=== PATIENT | male | born 1970 | race Caucasian/White ===

== ENCOUNTER 2019-06-01 05:28 | Inpatient (IN) | payer BC ==
[~2019-06-01] VITALS: Ht 170.2 cm; Wt 87.2 kg
[2019-06-01] MEDS ORDERED: LACTATED RINGERS 1,000 ML IV SCH (06:17)
[2019-06-01] MEDS ORDERED: MIDAZOLAM 1 MG/ML, 2ML ONE (06:46)
[2019-06-01] MEDS ORDERED: FENTANYL PF 250 MCG/5ML ONE (06:47)
[2019-06-01] MEDS ORDERED: PHENYLEPHRINE 10 MG/ML ONE (06:47)
[2019-06-01] MEDS ORDERED: GABA600T7 PO (06:49)
[2019-06-01] MEDS ORDERED: CELE100C PO (06:49)
[2019-06-01] MEDS ORDERED: OXYC10TA6 PO (06:49)
[2019-06-01] MEDS ORDERED: PROPOFOL 10 MG/ML, 20ML ONE (06:53)
[2019-06-01] MEDS ORDERED: GLYCOPYRROLATE 0.2MG/1ML, 5ML ONE (06:53)
[2019-06-01] MEDS ORDERED: NEOSTIGMINE 1 MG/ML, 10ML ONE (06:53)
[2019-06-01] MEDS ORDERED: ROCURONIUM 10MG/ML,5ML ONE (06:53)
[2019-06-01] MEDS ORDERED: CEFAZOLIN 1,000 MG ONE (06:53)
[2019-06-01] MEDS ORDERED: PROPOFOL 100 ML ONE (06:54)
[2019-06-01] MEDS ORDERED: BUPIVACAINE/PF-EPI 0.5% 1:200K ONE (06:57)
[2019-06-01] MEDS ORDERED: THROMBIN 5,000 UNIT VIAL TP ONE (06:57)
[2019-06-01] MEDS ORDERED: morphine SULFATE/PF 1 MG/ML, 10ML ONE (06:57)
[2019-06-01] MEDS ORDERED: LIDOCAINE 1%-EPI 1:100K, 20ML ONE (06:58)
[2019-06-01] MEDS ORDERED: FENTANYL PF 100 MCG/2ML ONE ×2 (06:58→11:03)
[2019-06-01] MEDS ORDERED: VANCOMYCIN 1,000 MG ONE (06:58)
[2019-06-01] MEDS ORDERED: BACITRACIN 50,000 UNIT ONE (06:58)
[2019-06-01] MEDS ORDERED: GABAPENTIN 300 MG CAPSULE PO ONE (07:00)
[2019-06-01] MEDS ORDERED: ACETAMINOPHEN 500 MG TABLET PO ONE (07:00)
[2019-06-01] MEDS ORDERED: GENTAMICIN 80 MG/2 ML ONE ×2 (07:25)
[2019-06-01] MEDS ORDERED: hydrALAzine 20 MG/ML, 1ML IV PRN (07:30)
[2019-06-01] MEDS ORDERED: OXYcodone 5 MG/5 ML ORAL.SOL UDC PO PRN (07:30)
[2019-06-01] MEDS ORDERED: MEPERIDINE/PF 25MG/ML,1ML IVPush PRN (07:30)
[2019-06-01] MEDS ORDERED: ONDANSETRON 2MG/ML, 2ML IV PRN (07:30)
[2019-06-01] MEDS ORDERED: MORPHINE SULFATE 4 MG/ML, 1ML IVPush PRN (07:30)
[2019-06-01] MEDS ORDERED: HYDROmorphone 2 MG/ML, 1ML IVPush PRN (07:30)
[2019-06-01] MEDS ORDERED: LABETALOL 5MG/ML, 20ML IV PRN ×2 (07:30→13:00)
[2019-06-01] MEDS ORDERED: CEFUROXIME 1.5 GM in SODIUM CHLORIDE 0.9% 50 ML IV SCH (09:00)
[2019-06-01] MEDS ORDERED: CEFUROXIME 1.5 GM in SODIUM CHLORIDE 0.9% 100 ML IV SCH (09:00)
[2019-06-01] MEDS: FENTANYL PF 100 MCG/2ML IV PRN ×3 (11:05→11:28)
[2019-06-01] MEDS ORDERED: OXYcodone 5 MG/5 ML ORAL.SOL UDC ONE (11:28)
[2019-06-01 12:25] VITALS: BP 101/66
[2019-06-01] MEDS ORDERED: HYDROcodone/APAP 5/325 TABLET PO PRN (13:00)
[2019-06-01] MEDS ORDERED: DIPHENHYDRAMINE 50 MG/ML, 1ML IVPush PRN (13:00)
[2019-06-01] MEDS: D5%-0.9% NACL+KCL 20MEQ 1,000 ML IV SCH ×2 (14:19→21:47)
[2019-06-01] MEDS: CEFAZOLIN PMX 1GM/50ML 50 ML IVPB SCH (15:50)
[2019-06-01 18:41] VITALS: BP 104/70
[2019-06-01] MEDS: OXYcodone/APAP 5/325MG TABLET PO PRN (20:24)
[2019-06-01] MEDS: ONDANSETRON 2MG/ML, 2ML IV PRN (20:30)
[2019-06-02 00:02] VITALS: BP 105/69
[2019-06-02] MEDS: OXYcodone/APAP 5/325MG TABLET PO PRN ×5 (00:22→18:16)
[2019-06-02] MEDS: CEFAZOLIN PMX 1GM/50ML 50 ML IVPB SCH ×3 (00:22→21:15)
[2019-06-02] MEDS: ONDANSETRON 2MG/ML, 2ML IV PRN ×2 (02:34→09:03)
[2019-06-02 04:20] VITALS: BP 96/59
[2019-06-02] MEDS: D5%-0.9% NACL+KCL 20MEQ 1,000 ML IV SCH ×3 (06:15→22:16)
[2019-06-02 07:11] VITALS: BP 96/60
[2019-06-02] MEDS: GABAPENTIN 300 MG CAPSULE PO SCH (08:59)
[2019-06-02] MEDS: SENNA/DOCUSATE TABLET PO SCH (08:59)
[2019-06-02] MEDS ORDERED: DIAZEPAM 5 MG TABLET ONE ×2 (09:58→18:13)
[2019-06-02] MEDS: DIAZEPAM 10 MG TABLET PO PRN ×2 (09:58→18:16)
[2019-06-02] MEDS ORDERED: ACETAMINOPHEN 500 MG TABLET PO PRN (10:00)
[2019-06-02] MEDS ORDERED: ONDANSETRON 2MG/ML, 2ML IV PRN (10:00)
[2019-06-02] MEDS ORDERED: CEFAZOLIN 1,000 MG IM SCH (10:00)
[2019-06-02] MEDS: DEXAMETHASONE 4 MG/ML, 1ML IVPush SCH ×3 (10:54→22:16)
[2019-06-02 11:30] LABS: BASOPHILS # (AUTO) 0.01 x10^3/uL (0-0.1); BASOPHILS % (AUTO) 0 % (0-1); EOSINOPHILS # (AUTO) 0.08 x10^3/uL (0-0.4); EOSINOPHILS % (AUTO) 1 % (1-7); LYMPHOCYTES # (AUTO) 0.98 x10^3/uL (1-3.4); LYMPHOCYTES % (AUTO) 12 % (22-44); MD NO; MEAN CORPUSCULAR HEMOGLOBIN 31.7 pg (27.5-34.5); MEAN CORPUSCULAR VOLUME 93.3 fL (81-97); MEAN PLATELET VOLUME 9.3 fL (7.4-10.4); MONOCYTES # (AUTO) 0.73 x10^3/uL (0.2-0.8); MONOCYTES % (AUTO) 9 % (2-9); NEUTROPHILS # (AUTO) 6.44 x10^3/uL (1.8-6.8); NEUTROPHILS % (AUTO) 78 % (42-75); PLATELET COUNT 179 x10^3/uL (130-400); RED BLOOD COUNT 3.85 x10^6/uL (4.38-5.82); RED CELL DISTRIBUTION WIDTH 12.7 % (9.4-14.8)
[2019-06-02 11:34] LABS: HCT (SEDRATE) 35.9 % (39.2-51.8)
[2019-06-02 12:35] VITALS: BP 92/56
[2019-06-02] MEDS ORDERED: CEFAZOLIN 1,000 MG IV SCH (18:00)
[2019-06-02] MEDS ORDERED: CEFAZOLIN PMX 1GM/50ML 50 ML IVPB SCH (18:00)
[2019-06-02 18:34] VITALS: BP 102/63
[2019-06-03 01:27] VITALS: BP 96/58
[2019-06-03] MEDS: OXYcodone/APAP 5/325MG TABLET PO PRN ×4 (01:32→17:57)
[2019-06-03 05:35] LABS: CREATININE 0.85 mg/dL (0.7-1.3)
[2019-06-03] MEDS: D5%-0.9% NACL+KCL 20MEQ 1,000 ML IV SCH ×2 (05:56→14:17)
[2019-06-03 07:03] VITALS: BP 107/68
[2019-06-03] MEDS ORDERED: DIAZEPAM 5 MG TABLET ONE (08:15)
[2019-06-03] MEDS: GABAPENTIN 300 MG CAPSULE PO SCH (08:20)
[2019-06-03] MEDS: SENNA/DOCUSATE TABLET PO SCH (08:20)
[2019-06-03 13:49] VITALS: BP 112/70
[2019-06-03 18:57] VITALS: BP 120/73
== END 2019-06-03 20:00 | disposition home or self-care (01) | DRG 29 ==
LOC: OR 05:28 → 4NE 12:15 → OR 12:21 → 4NE 12:21
PROVIDERS: ADMIT Orthopaedic Surgery Orthopaedic Surgery of the Spine; ATTEND Orthopaedic Surgery Orthopaedic Surgery of the Spine
PROC: 01NB0ZZ Release Lumbar Nerve, Open Approach (ICD-10-PCS; 2019-06-01)
PROC: 4A11X4G Monitoring of Peripheral Nervous Electrical Activity, Intraoperative, External Approach (ICD-10-PCS; 2019-06-01)
PROC: 00QT0ZZ Repair Spinal Meninges, Open Approach (ICD-10-PCS; principal; 2019-06-01 07:30)
DX: G97.82 Other postprocedural complications and disorders of nervous system (principal); G96.0 Cerebrospinal fluid leak; Y83.8 Other surgical procedures as the cause of abnormal reaction of the patient, or of later complication, without mention of misadventure at the time of the procedure
CPT/HCPCS: 36415; 82565; 85025; 85651; 87070; 87075; 87205; 95938; 95941; G0378; J0690; J1100; J2250; J2270; J2274; J2405; J2704; J2710; J3010; J3370; J3490; C1751; C1781; J1580; J2370; J3480; J7120